=== PATIENT | female | born 1990 | race Caucasian/White ===

== ENCOUNTER 2019-03-10 04:57 | Inpatient (IN) | payer MEDICAID ==
[2019-03-09 12:43] LABS: APPEARANCE,URINE SLIGHTLY-CLOUDY; BILIRUBIN,URINE NEGATIVE (NEGATIVE); COLOR,URINE YELLOW; GLUCOSE, URINE NEGATIVE (NEGATIVE); KETONES,URINE 20 mg/dL (NEGATIVE); LEUKOCYTE ESTERASE,URINE NEGATIVE (NEGATIVE); NITRITE,URINE NEGATIVE (NEGATIVE); PROTEIN,URINE NEGATIVE (NEGATIVE); URINE SPECIFIC GRAVITY 1.017; UROBILINOGEN,URINE NEGATIVE mg/dL (<2.0)
[2019-03-09 12:45] LABS: ABSOLUTE LYMPHOCYTES (AUTO) 1.5 10^3/uL (0.5-4.7); ABSOLUTE MONOCYTES (AUTO) 0.4 10^3/uL (0.1-1.4); ABSOLUTE NEUT (AUTO) 5.6 10^3/uL (1.7-8.2); BASOPHILS % (AUTO) 0.4 % (0-2); EOSINOPHILS % (AUTO) 0.4 % (0-6); HEMATOCRIT 38.9 % (36.0-47.0); HEMOGLOBIN 13.5 g/dL (12.0-15.5); LYMPHOCYTES % (AUTO) 19.7 % (13-45); MEAN CORPUSCULAR HEMOGLOBIN 30.5 pg (27.0-33.4); MEAN CORPUSCULAR HGB CONC 34.6 g/dL (32.0-36.0); MEAN CORPUSCULAR VOLUME 88 fl (80-97); MONOCYTES % (AUTO) 5.5 % (3-13); PLATELET COUNT 153 10^3/uL (150-450); RED BLOOD COUNT 4.41 10^6/uL (3.72-5.28); RED CELL DISTRIBUTION WIDTH 14.1 % (11.5-14.0); TOTAL CELLS COUNTED % (AUTO) 100 %; WHITE BLOOD COUNT 7.5 10^3/uL (4.0-10.5)
[2019-03-09 12:54] LABS: URINE AMPHETAMINES SCREEN NEGATIVE; URINE BARBITURATES SCREEN NEGATIVE; URINE BENZODIAZEPINES SCREEN NEGATIVE; URINE COCAINE SCREEN NEGATIVE; URINE MARIJUANA (THC) SCREEN NEGATIVE; URINE METHADONE SCREEN NEGATIVE; URINE PHENCYCLIDINE SCREEN NEGATIVE
[2019-03-10] MEDS ORDERED: CEFAZOLIN 2 GM/D5W RTU 2 GM/50 ML RTUPB IV SCH (05:00)
[2019-03-10] MEDS ORDERED: RINGERS SOLUTION,LACTATED 1,000 ML IV PRN (05:00)
[2019-03-10] MEDS ORDERED: LIDOCAINE 0.5% INJ-PF (5 MG/ML) 50 ML SDV SUBCUT PRN (05:00)
[2019-03-10] MEDS ORDERED: LACTATED RINGERS 1000 ML IV PRN (05:00)
[2019-03-10] MEDS ORDERED: KETAMINE HCL INJ 500 MG/10 ML VIAL ONE (06:44)
[2019-03-10] MEDS ORDERED: OXYTOCIN 10 UNIT/ML VIAL ONE (07:12)
[2019-03-10] MEDS ORDERED: PROPOFOL INJ 200 MG/20 ML VIAL IV ONE (07:12)
[2019-03-10] MEDS ORDERED: MIDAZOLAM 2 MG/2 ML INJ ONE (07:13)
[2019-03-10] MEDS ORDERED: OXYTOCIN/NORMAL SALINE 20 UNIT/1,000 ML RTUINJ ONE (07:13)
[2019-03-10] MEDS ORDERED: EPHEDRINE SULFATE INJ 50 MG/1 ML AMPULE ONE (07:13)
[2019-03-10] MEDS ORDERED: DIPHENHYDRAMINE HCL 50 MG/ML VIAL ONE (07:13)
[2019-03-10] MEDS ORDERED: FENTANYL CITRATE INJ/PF 100 MCG/2 ML AMPUL ONE ×2 (07:13→09:37)
[2019-03-10] MEDS ORDERED: ACETAMINOPHEN 1,000 MG/100 ML RTUPB IV ONE (07:13)
[2019-03-10] MEDS ORDERED: ONDANSETRON HCL INJ/PF 4 MG/2 ML SDV ONE (07:14)
[2019-03-10] MEDS ORDERED: ONDANSETRON HCL INJ/PF 4 MG/2 ML SDV IV PRN (07:59)
[2019-03-10] MEDS ORDERED: MORPHINE SULFATE 10 MG/ML INJ IV PRN (07:59)
[2019-03-10] MEDS ORDERED: MEPERIDINE HCL/PF INJ 25 MG/1 ML DISP.SYRIN IV PRN (07:59)
[2019-03-10] MEDS ORDERED: FENTANYL CITRATE INJ/PF 100 MCG/2 ML AMPUL IV PRN ×3 (07:59)
[2019-03-10] MEDS ORDERED: DIPHENHYDRAMINE HCL 50 MG/ML VIAL IV PRN (07:59)
[2019-03-10] MEDS ORDERED: PROMETHAZINE HCL INJ 25 MG/1 ML VIAL IV PRN ×2 (07:59→08:59)
[2019-03-10] MEDS ORDERED: DIPH/PERTUSS(ACELL)/TETANUS VAC/PF 0.5 ML SYR (>=10YO) IM PRN (08:59)
[2019-03-10] MEDS ORDERED: SIMETHICONE 80 MG TAB.CHEW PO PRN (08:59)
[2019-03-10] MEDS ORDERED: OXYCODONE-ACETAMINOPHEN 5-325 MG TABLET PO PRN (08:59)
[2019-03-10] MEDS ORDERED: OXYTOCIN/NORMAL SALINE 20 UNIT/1,000 ML RTUINJ IV PRN (08:59)
[2019-03-10] MEDS ORDERED: MEASLES,MUMPS&RUBELLA VACC/PF 0.5 ML VIAL SUBCUT PRN (08:59)
[2019-03-10] MEDS ORDERED: ACETAMINOPHEN 325 MG TABLET PO PRN (08:59)
[2019-03-10] MEDS ORDERED: ACETAMINOPHEN 1,000 MG/100 ML RTUPB IV PRN (08:59)
--- NOTE | 2019-03-10 09:28 | PDOC DELIVERY SUMMARY ---
Delivery Summary - Maternal Hx : IV Hx Para: III Hx # Term Pregnancies: 3 Hx # Pregnancies: 0 Hx Total # of Abortions (Sponateous & Elective): 0 Number of Living Children: 3 ADRIAN: 03/16/19 Gestational Age: 39+1 Risk Factors: Other - history of shoulder dystocia with 9#2oz baby Ruptured Membranes: AROM Time of Rupture: 08:03 Fluids: Clear - Delivery Labor: Not In Labor Presentation: Vertex Heart Rate Monitoring: Done Pre-Operatively Uterine Contraction Monitoring: External Support Person Present: Yes Location: OR : Scheduled Placenta: Within Normal Limits Placenta Description: normal Number of Vessels (Cord): 3 Nuchal Cord: No Delivery of Placenta Date: 03/10/19 Delivery of Placenta Time: 08:04 Estimated Blood Loss: 762 Delivery Quantitative Blood Loss (QBL): 762 - Medications Type of Anesthesia:: Spinal - Infant Assess and Care Baby 1 Female Delivery of Date: 03/10/19 Delivery of Time: 08:04 at 1 minute: 8 at 5 minutes: 9 Preprinted Number On Band: [id number] Infant Skin to Skin: No Skin to Skin (Mins): 0 To Nursery At: 08:24 Mode of Transport: Bassinet Delivery Weight: 4,295 Delivery Length: 20.5 in - Delivery Personnel Music Department Chair: DEANNE CERON Nursery RN: FAITH PALAFOX RN: BROOKE RUCKER MD: SANDRA GARCIA
--- NOTE | 2019-03-10 09:35 | Brief Operative Note ---
BRIEF OPERATIVE REPORT DATE OF SURGERY: 03/10/19 TIME OF SURGERY: 08:00 PREOPERATIVE DIAGNOSIS: , 39+1ega, history of shoulder dystocia, Undesired fertility POSTOPERATIVE DIAGNOSIS: MINDY - delivered, macrosomia SURGEON: SANDRA GARCIA FINDINGS: VFI delivered at 0804, Apgars 8/9, weight 4295g (9#8oz), normal bilateral tubes/ovaries, normal uterus. Fallopian tubes occluded bilaterally with Filschie clips in mid ampullary portion of each tube. COMPLICATIONS: None ESTIMATED BLOOD LOSS: 762 TISSUE REMOVED OR ALTERED: placenta and cord not sent to pathology TECHNICAL PROCEDURE: Primary Section with Bilateral Tubal ligation
--- NOTE | 2019-03-10 09:38 | Operative Report ---
Operative Report DATE OF SURGERY: 03/10/19 PREOPERATIVE DIAGNOSIS: , 39+1ega, history of shoulder dystocia, Undesir ed fertility POSTOPERATIVE DIAGNOSIS: MINDY - delivered, macrosomia OPERATION: Primary Section with Bilateral Tubal ligation SURGEON: SANDRA GARCIA ANESTHESIA: Spinal TISSUE REMOVED OR ALTERED: placenta and cord not sent to pathology COMPLICATIONS: None ESTIMATED BLOOD LOSS: 762 INTRAOPERATIVE FINDINGS: VFI delivered at 0804, Apgars 8/9, weight 4295g (9#8oz), normal bilateral tubes/ovaries, normal uterus. Fallopian tubes occluded bilaterally with Filschie clips in mid ampullary portion of each tube. PROCEDURE: Anesthesia provider: [Priscilla DAY] Urine output: [1200ml] IV fluids: [100ml] Indications: [28yo at 39+1ega with history of shoulder dystocia (with 9#2oz baby) last presents for Primary Cesaean section. This baby is likely of similar size and she desires section to prevent shoulder dystocia. She also has completed childbearing and desires bilateral tubal ligation. She was counseled regarding the risks, benefits, alternatives and desires to proceed with planned procedure.] Procedure: The patient was taken to the operating room where spinal anesthesia was obtained and found to be adequate. She was then prepped and draped in the normal sterile fashion and placed in the dorsal supine position with a leftward tilt. A Pfannenstiel skin incision was then made and carried through to the underlying layers of the fascia with the scalpel. The fascia was incised in the midline and the incision extended laterally with the Malin scissors. The superior aspect of the fascial incision was then grasped with Hawa clamps elevated and the underlying rectus muscles dissected off [sharply]. Attention was then turned to the inferior aspect of the fascial incision which in a similar fashion was grasped, tented up with Hawa clamps, and the rectus muscles dissected off [sharply]. The rectus muscles were then in the midline and the peritoneum at the amount identified and entered [sharply]. The peritoneal incision was then extended superiorly and inferiorly with good visualization of the bladder. The bladder blade was inserted and the vesicouterine peritoneum identified grasped with [place] pickups and entered sharply with the Metzenbaum scissors. This incision was then extended laterally with the Metzenbaum scissors and a bladder flap created digitally. The bladder blade was then reinserted and the lower uterine segment incised in a transverse fashion with the scalpel. The uterine incision was then extended bluntly. The bladder blade was removed and the infant's head was delivered from cephalic presentation atraumatically (see findings). The nose and mouth were suctioned and the cord doubly clamped and cut. And the infant was handed off to waiting pediatricians. The placenta was then delivered spontaneously and the uterus exteriorized and cleared of all clots and debris. The uterine incision was then repaired with 1- 0 Vicryl in a running locked fashion. A second layer of the same suture was used to obtain hemostasis via imbrication of the initial layer. The bladder flap was then repaired with 3-0 chromic in a running fashion. The left fallopian tube was identified and followed out to the fimbriated end and the mid ampullary portion was clamped with Filschie clip. This procedure was repeated on the patient's right completing the bilateral tubal ligation with Filschie clips. The uterus was returned to the patient's abdomen and Surgicel was placed overlying the uterine incision due to diffuse inflammatory reaction over anterior uterus needing additional hemostasis. The gutters were cleared of all clots and debris. All operative sites were noted to be hemostatic. The fascia was reapproximated with 0 Vicryl in a running fashion from each lateral edge to the midline. The subcuticular area was closed with 2-0 vicryl. The skin was closed with 3-0 Monocryl in a running subcuticular fashion with overlying Dermabond prineo (since that was already pulled by staff) for additional dressing as well as wound closure. The patient tolerated the procedure well. Sponge lap needle and instrument counts are correct times 2. 2 g of Ancef were given prior to skin incision. The patient was taken to the recovery area awake and in stable condition.
[2019-03-10] MEDS ORDERED: DOCUSATE SODIUM 100 MG CAPSULE ONE (10:02)
[2019-03-10] MEDS ORDERED: PRENATAL VITAMIN W DHA CAPSULE PO ONE (10:02)
[2019-03-10] MEDS: DOCUSATE SODIUM 100 MG CAPSULE PO SCH ×2 (10:03→17:06)
[2019-03-10] MEDS: PRENATAL VITAMIN W DHA CAPSULE PO SCH (10:03)
[2019-03-10] MEDS: OXYCODONE-ACETAMINOPHEN 5-325 MG TABLET PO PRN ×2 (11:14→17:07)
[2019-03-10] MEDS: RINGERS SOLUTION,LACTATED 1,000 ML IV PRN ×2 (11:17→17:11)
[2019-03-10] MEDS: KETOROLAC TROMETHAMINE INJ/PF 30 MG/1 ML SDV IV SCH ×2 (13:23→22:46)
[2019-03-10] MEDS: HYDROMORPHONE HCL INJ/PF 2 MG/ML AMPULE IV PRN ×2 (14:29→18:33)
[2019-03-10] MEDS ORDERED: PHENYLEPHRINE HCL INJ/PF 10 MG/1 ML SDV ONE (17:28)
[2019-03-10] MEDS ORDERED: KETOROLAC TROMETHAMINE 60 MG/2 ML SDV ONE (17:28)
[2019-03-10] MEDS ORDERED: GLYCOPYRROLATE 1 MG/5 ML VIAL ONE (17:28)
[2019-03-11] MEDS: IBUPROFEN 800 MG TABLET PO SCH ×4 (05:42→23:05)
[2019-03-11 06:13] LABS: HEMATOCRIT 22.9 % (36.0-47.0); MEAN CORPUSCULAR HEMOGLOBIN 30.6 pg (27.0-33.4); MEAN CORPUSCULAR HGB CONC 34.9 g/dL (32.0-36.0); MEAN CORPUSCULAR VOLUME 88 fl (80-97); PLATELET COUNT 120 10^3/uL (150-450); RED BLOOD COUNT 2.61 10^6/uL (3.72-5.28); RED CELL DISTRIBUTION WIDTH 13.9 % (11.5-14.0)
[2019-03-11] MEDS: OXYCODONE-ACETAMINOPHEN 5-325 MG TABLET PO PRN ×3 (08:33→17:15)
[2019-03-11] MEDS: PRENATAL VITAMIN W DHA CAPSULE PO SCH (09:53)
[2019-03-11] MEDS: DOCUSATE SODIUM 100 MG CAPSULE PO SCH ×2 (09:54→17:17)
--- NOTE | 2019-03-11 10:05 | PDOC PROGRESS REPORT ---
Subjective-OB Progress Note for:: 03/11/19 - POD #1, doing well, s/p Rpt w/ BTL, , O+ Rubella Immune Physical Exam (OB) Vital Signs: Temp Pulse Resp BP Pulse Ox 98.3 F 80 18 108/66 99 03/11/19 08:32 03/11/19 08:32 03/11/19 08:32 03/11/19 08:32 03/11/19 08:32 Intake & Output 03/10/19 03/11/19 03/12/19 06:59 06:59 06:59 Intake Total 1000 2938 1000 Output Total 1800 Balance 1000 1138 1000 Weight 91 kg - General General Appearance: Appears well, Alert - PIH/Pre-Eclampsia Headache: Absent Epigastric Pain: No Visual Changes: No - Dressing Removed: No Closure Type: Sutures - Lochia Lochia Amount: Scant < 10 ml Lochia Color: Rubra/Red - Abdomen Description: Soft Hernia Present: No Fundal Description: Firm, Midline Fundal Height: u/u - u/2 - Respiratory Respiratory Status: No respiratory distress Chest Status: Nontender Breath sounds: Clear - Cardiovascular Rhythm: Regular Heart Sounds: Normal auscultation - Abdominal Inspection: Normal Distension: No distension Tenderness: Nontender Abdominal Notes: +bowel sounds - Genitourinary Genitourinary Note: voiding - Extremities Upper extremity: Normal inspection Lower extremities: Normal inspection - Neurological Cognition: Normal Orientation: AAOx4 - Psychological Associated symptoms: Normal affect, Normal mood - Skin Skin Temperature: Warm Skin Moisture: Dry Objective-Diagnostic Laboratory: 03/11/19 05:48 03/11/19 05:48 WBC 6.0 RBC 2.61 L Hgb 8.0 L D Hct 22.9 L MCV 88 MCH 30.6 MCHC 34.9 RDW 13.9 Plt Count 120 L Assessment and Plan(PN) - Assessment and Plan (1) Anemia, Is this a current diagnosis for this admission?: Yes (2) History of shoulder dystocia in prior , currently Is this a current diagnosis for this admission?: Yes (3) Status post primary low transverse section Is this a current diagnosis for this admission?: Yes (4) Status post tubal ligation at time of delivery, current hosp Is this a current diagnosis for this admission?: Yes (5) Sterilization Is this a current diagnosis for this admission?: Yes - Time Spent with Patient Time with patient: Less than 15 minutes Medications reviewed and adjusted accordingly: Yes - Disposition Anticipated Discharge: Home Within: within 48 hours
[2019-03-11] MEDS: FERROUS SULFATE 325 MG TABLET PO SCH (11:15)
[2019-03-12] MEDS: OXYCODONE-ACETAMINOPHEN 5-325 MG TABLET PO PRN ×2 (02:18→08:07)
[2019-03-12] MEDS: IBUPROFEN 800 MG TABLET PO SCH ×2 (06:16→11:53)
[2019-03-12] MEDS: DOCUSATE SODIUM 100 MG CAPSULE PO SCH (09:09)
[2019-03-12] MEDS: PRENATAL VITAMIN W DHA CAPSULE PO SCH (09:09)
[2019-03-12] MEDS: FERROUS SULFATE 325 MG TABLET PO SCH (09:09)
[2019-03-12 12:35] VITALS: BP 109/74
--- NOTE | 2019-03-12 12:55 | PDOC DISCHARGE SUMMARY ---
Addendum entered and electronically signed by ALEISHA LEW CNM 04/06/19 16:35: Discharge Diagnosis - Discharge Diagnosis (1) History of shoulder dystocia in prior , currently Is this a current diagnosis for this admission?: Yes (2) Status post primary low transverse section Is this a current diagnosis for this admission?: Yes (3) Status post tubal ligation at time of delivery, current hosp Is this a current diagnosis for this admission?: Yes (4) Acute blood loss as cause of postoperative anemia Is this a current diagnosis for this admission?: Yes Original Note: Final Diagnosis Discharge Date: 03/12/19 - Final Diagnosis (1) Anemia, Is this a current diagnosis for this admission?: Yes (2) History of shoulder dystocia in prior , currently Is this a current diagnosis for this admission?: Yes (3) Status post primary low transverse section Is this a current diagnosis for this admission?: Yes (4) Status post tubal ligation at time of delivery, current hosp Is this a current diagnosis for this admission?: Yes Discharge Data - Discharge Medication Home Medications: Multivitamins W-Iron [Flintstones Chewable Multivit W/Fe Tab] 1 tab PO DAILY 05/27/13 Reason(s) for Admission: Ceasarean Section-Primary Intrapartum Procedure(s): Spontaneous Vaginal Delivery - Diagnosis Test Laboratory: Temp Pulse Resp BP Pulse Ox 98.0 F 76 16 109/74 98 03/12/19 12:06 03/12/19 12:06 03/12/19 12:06 03/12/19 12:06 03/12/19 12:06 03/09/19 03/09/19 03/11/19 10:53 11:02 05:48 RBC 4.41 2.61 L Hgb 13.5 8.0 L D Hct 38.9 22.9 L Urine Opiates Screen NEGATIVE - Discharge information/Instructions Discharge Activity: Balance Activity w/Rest, No Lifting Over 10 Pounds, No Lifting/Push/Pulling, Pelvic Rest, No tub bath Discharge Diet: Regular Disposition: HOME, SELF-CARE Follow [facility] with: [facility] in: 1, Weeks
== END 2019-03-12 15:50 | disposition home or self-care (01) | DRG 784 ==
LOC: 2S 04:57
PROVIDERS: ADMIT Student in an Organized Health Care Education/Training Program; ATTEND Student in an Organized Health Care Education/Training Program
PROC: 0UL70CZ Occlusion of Bilateral Fallopian Tubes with Extraluminal Device, Open Approach (ICD-10-PCS; 2019-03-10)
PROC: 10D00Z1 Extraction of Products of Conception, Low, Open Approach (ICD-10-PCS; principal; 2019-03-10 07:45)
PROC: 3E0234Z Introduction of Serum, Toxoid and Vaccine into Muscle, Percutaneous Approach (ICD-10-PCS; 2019-03-12)
DX: O36.63X0 Maternal care for excessive fetal growth, third trimester, not applicable or unspecified (principal); D62 Acute posthemorrhagic anemia; O99.02 Anemia complicating childbirth; Z30.2 Encounter for sterilization; Z3A.39 39 weeks gestation of pregnancy; Z37.0 Single live birth; Z87.59 Personal history of other complications of pregnancy, childbirth and the puerperium; Z23 Encounter for immunization
CPT/HCPCS: 1961; 36415; 59025; 80307; 81001; 85025; 85027; 86850; 86900; 86901; 90715; 94799; J0131; J0690; J1170; J1200; J1885; J2250; J2370; J2405; J2590; J2704; J3010; J3490; J7120